=== PATIENT | female | born 1950 | race Caucasian/White ===

== ENCOUNTER 2018-06-29 23:53 | Emergency (ER) | payer MEDICARE ==
[2018-06-30] MEDS ORDERED: NORMAL SALINE 500 ML IV ONE (00:13)
--- NOTE | 2018-06-30 00:13 | ER Document Report ---
ED General - General Chief Complaint: Altered Mental Status Stated Complaint: ALTERED MENTAL STATUS Time Seen by Provider: 06/30/18 00:00 Notes: Patient is a 68-year-old female with primary biliary cirrhosis that presents to the emergency department for chief complaint of confusion. Daughter at bedside is providing history. She reports that since this morning the patient's been altered and more confused and becoming progressively worse over the course of the evening, then she had nausea and 2 episodes of vomiting, at that point they called EMS to bring her to the emergency department. She does have cirrhosis, was recently in the ER, and had elevated ammonia levels, and elevated bilirubin, worsen previous, was seen at [place], and does have a follow-up appointment in 2 weeks. They decreased her lactulose dosing, she also missed 2 doses recently as well. She has not on dialysis currently. She denies having any pain at this time. She is currently being evaluated for possible liver kidney transplant, that is what her his appointment is for coming up. Past Medical History: Primary biliary cirrhosis, diabetes mellitus, chronic kidney disease stage IV Past Surgical History: Hernia repair Social History: Former smoker, denies alcohol or drug use Family History: Reviewed and noncontributory for presenting illness Allergies: Reviewed, see documented allergy list. REVIEW OF SYSTEMS: Other than noted above, the 12 point review of systems was reviewed with the patient and were negative, all pertinent findings are included in the HPI. PHYSICAL EXAMINATION: Vital signs reviewed, nursing noted reviewed. GENERAL: Well-appearing, well-nourished and in no acute distress. HEAD: Atraumatic, normocephalic. EYES: Eyes appear normal, extraocular movements intact, positive scleral icterus, conjunctiva are normal. ENT: nares patent, oropharynx clear without exudates. Moist mucous membranes. NECK: Normal range of motion, supple without lymphadenopathy LUNGS: Breath sounds clear to auscultation bilaterally and equal. No wheezes rales or rhonchi. HEART: Regular rate and rhythm without murmurs ABDOMEN: Soft, nontender, normoactive bowel sounds. No rebound, guarding, or rigidity. No masses appreciated. EXTREMITIES: Nontender, good range of motion, no pitting or edema. NEUROLOGICAL: Alert and oriented x3, alert to self, place, and person, confused about the year, but does know the month. Moves all extremities spontaneously Motor and sensory grossly intact on exam. PSYCH: Normal mood, normal affect. SKIN: Warm, Dry, normal turgor, jaundiced - Related Data Allergies/Adverse Reactions: acetaminophen [From Vicodin] Allergy (Verified 06/30/18 00:43) hydrocodone [From Vicodin] Allergy (Verified 06/30/18 00:43) levofloxacin Allergy (Verified 06/30/18 00:44) propoxyphene Allergy (Verified 06/30/18 00:44) shrimp Allergy (Verified 06/30/18 00:44) Sulfa (Sulfonamide Antibiotics) Allergy (Verified 06/30/18 00:44) tramadol Allergy (Verified 06/30/18 00:43) Past Medical History - Social History Smoking Status: Former Smoker Family History: Reviewed & Not Pertinent Physical Exam - Vital signs Vitals: Temp Pulse Resp BP Pulse Ox 97.6 F 70 12 133/60 H 100 06/29/18 23:53 06/29/18 23:53 06/29/18 23:53 06/29/18 23:53 06/29/18 23:53 Course - Re-evaluation Re-evalutation: Patient seen and examined vital signs reviewed. Laboratory data and imaging were ordered as appropriate for the patient's presenting symptoms and complaint, with consideration of any critical or life threatening conditions that may be associated with their obtained history and exam as noted above. Patient was treated with IV fluid bolus, and lactulose as well as rifaximin Results were reviewed when available and demonstrated elevated ammonia level, hyperbilirubinemia, mild hyponatremia, as well as anemia, and mild thrombocytopenia Results were discussed with the patient's daughter, the ammonia level is elevated from any baseline testing she has had before, her creatinine is improved from recent labs, and her hyperbilirubinemia it usually runs around 7- 8, so it is not significantly changed. The patient was re-evaluated and was stable, still alert and answering questions, still mildly confused, I discussed at length with the patient's daughter is at bedside and understands the patient's condition well the option of admission to the hospital, for her hepatic encephalopathy, versus discharge to home and treatment at home, as there familiar with this condition and treatment, as the patient is alert, not somnolent, not requiring support, and vital signs are stable, I feel that it is a reasonable option for her to be discharged home, would give her a prescription for rifaximin as well as encourage daily lactulose and to follow-up at her appointment in approximately 2 weeks she was agreeable with this plan of care, and also understood strict return precautions. Evaluation was most consistent with hepatic encephalopathy Results were discussed with the patient at this point, after careful conside ration I feel that that patient can be discharged from the emergency department, the patient was educated treatments and reasons to return to the emergency department based on their presumed diagnosis as noted above, they were advised to followup with a primary care physician in 2-3 days. Patient was agreeable to plan of care. *Note is created using voice recognition software and may contain spelling, syntax or grammatical errors. Laboratory 06/30/18 06/30/18 06/30/18 00:10 00:10 00:10 WBC 5.4 RBC 3.40 L Hgb 10.8 L Hct 31.3 L MCV 92 MCH 31.9 MCHC 34.6 RDW 16.6 H Plt Count 106 L Seg Neutrophils % 62.6 Lymphocytes % 27.3 Monocytes % 7.3 Eosinophils % 2.0 Basophils % 0.8 Absolute Neutrophils 3.4 Absolute Lymphocytes 1.5 Absolute Monocytes 0.4 Absolute Eosinophils 0.1 Absolute Basophils 0.0 Sodium 135.5 L Potassium 3.7 Chloride 103 Carbon Dioxide 24 Anion Gap 9 BUN 37 H Creatinine 2.24 H Est GFR ( Amer) 26 L Est GFR (Non-Af Amer) 22 L Glucose 142 H Lactic Acid 1.3 Calcium 9.0 Total Bilirubin 8.3 H Direct Bilirubin 6.5 H Neonat Total Bilirubin Not Reportable Neonat Direct Bilirubin Not Reportable Neonat Indirect Bili Not Reportable AST 128 H ALT 44 Alkaline Phosphatase 436 H Ammonia Troponin I Total Protein 8.7 H Albumin 3.3 L 06/30/18 06/30/18 00:10 00:10 WBC RBC Hgb Hct MCV MCH MCHC RDW Plt Count Seg Neutrophils % Lymphocytes % Monocytes % Eosinophils % Basophils % Absolute Neutrophils Absolute Lymphocytes Absolute Monocytes Absolute Eosinophils Absolute Basophils Sodium Potassium Chloride Carbon Dioxide Anion Gap BUN Creatinine Est GFR ( Amer) Est GFR (Non-Af Amer) Glucose Lactic Acid Calcium Total Bilirubin Direct Bilirubin Neonat Total Bilirubin Neonat Direct Bilirubin Neonat Indirect Bili AST ALT Alkaline Phosphatase Ammonia 106.9 H Troponin I < 0.012 Total Protein Albumin 06/30/18 01:51 - Vital Signs Vital signs: Temp Pulse Resp BP Pulse Ox 97.8 F 70 16 122/58 L 98 06/30/18 00:00 06/29/18 23:53 06/30/18 01:01 06/30/18 01:01 06/30/18 01:01 - Laboratory Result Diagrams: 06/30/18 00:10 06/30/18 00:10 Laboratory results interpreted by me: 06/30/18 06/30/18 06/30/18 00:10 00:10 00:10 RBC 3.40 L Hgb 10.8 L Hct 31.3 L RDW 16.6 H Plt Count 106 L Sodium 135.5 L BUN 37 H Creatinine 2.24 H Est GFR ( Amer) 26 L Est GFR (Non-Af Amer) 22 L Glucose 142 H Total Bilirubin 8.3 H Direct Bilirubin 6.5 H AST 128 H Alkaline Phosphatase 436 H Ammonia 106.9 H Total Protein 8.7 H Albumin 3.3 L - EKG Interpretation by Me Additional EKG results interpreted by me: EKG demonstrates sinus rhythm with a ventricular rate of 69 bpm, normal axis, QTC 502 ms, there is no evidence of acute ischemia on this EKG no prior for comparison. Discharge - Discharge Clinical Impression: Hepatic encephalopathy, Hyponatremia, Renal insufficiency, Hyperbilirubinemia, Thrombocytopenia Anemia Qualifiers: Anemia type: unspecified type Qualified Code(s): D64.9 - Anemia, unspecified Condition: Stable Disposition: HOME, SELF-CARE Instructions: Hepatic Encephalopathy ([facility]) Additional Instructions: Please start the rifaximin twice daily, until she is able to be seen in the clinic, continue the lactulose as well, as this is the mainstay for treating high ammonia levels. If she is having worsening symptoms, is not able to be woken up, or seems more confused over the next 24-48 hours, do not hesitate to return to the emergency department for her to be reevaluated. Please follow-up with [facility], for your appointment on the and 15 July. Prescriptions: Rifaximin [Xifaxan 550 mg Tablet] 550 mg PO BID #30 tablet
[2018-06-30 00:23] LABS: ABSOLUTE EOSINOPHILS # (AUTO) 0.1 10^3/uL (0.0-0.6); ABSOLUTE LYMPHOCYTES (AUTO) 1.5 10^3/uL (0.5-4.7); ABSOLUTE MONOCYTES (AUTO) 0.4 10^3/uL (0.1-1.4); ABSOLUTE NEUT (AUTO) 3.4 10^3/uL (1.7-8.2); BASOPHILS % (AUTO) 0.8 % (0-2); HEMATOCRIT 31.3 % (36.0-47.0); HEMOGLOBIN 10.8 g/dL (12.0-15.5); LYMPHOCYTES % (AUTO) 27.3 % (13-45); MEAN CORPUSCULAR HEMOGLOBIN 31.9 pg (27.0-33.4); MEAN CORPUSCULAR HGB CONC 34.6 g/dL (32.0-36.0); MEAN CORPUSCULAR VOLUME 92 fl (80-97); MONOCYTES % (AUTO) 7.3 % (3-13); PLATELET COUNT 106 10^3/uL (150-450); RED CELL DISTRIBUTION WIDTH 16.6 % (11.5-14.0); SEGMENTED NEUTROPHILS % (AUTO) 62.6 % (42-78); TOTAL CELLS COUNTED % (AUTO) 100 %; WHITE BLOOD COUNT 5.4 10^3/uL (4.0-10.5)
[2018-06-30 00:43] LABS: ALANINE AMINOTRANSFERASE 44 U/L (9-52); ALBUMIN 3.3 g/dL (3.5-5.0); ALKALINE PHOSPHATASE 436 U/L (38-126); ANION GAP 9 (5-19); ASPARTATE AMINO TRANSFERASE 128 U/L (14-36); BILIRUBIN,DIRECT 6.5 mg/dL (0.0-0.4); BILIRUBIN,TOTAL 8.3 mg/dL (0.2-1.3); BLOOD UREA NITROGEN 37 mg/dL (7-20); CARBON DIOXIDE 24 mmol/L (22-30); CHLORIDE 103 mmol/L (98-107); GLUCOSE 142 mg/dL (75-110); POTASSIUM 3.7 mmol/L (3.6-5.0); SODIUM 135.5 mmol/L (137-145); TOTAL PROTEIN 8.7 g/dL (6.3-8.2)
[2018-06-30] MEDS ORDERED: RIFAXIMIN 550 MG TABLET PO ONE (00:59)
[2018-06-30] MEDS ORDERED: LACTULOSE SYRUP 20 GM/30 ML UDCUP PO ONE (01:00)
[2018-06-30] MEDS ORDERED: RIFAXIMIN 550 MG TABLET ONE (01:44)
[2018-06-30 02:10] VITALS: BP 115/55
[2018-06-30] MEDS ORDERED: ONDANSETRON 4 MG TAB.RAPDIS PO ONE (02:19)
--- NOTE | 2018-06-30 15:40 | EKG REPORT ---
SEVERITY:- ABNORMAL ECG - SINUS RHYTHM BORDERLINE PROLONGED QT INTERVAL : Confirmed by: Mae Villaseñor 30-Jun-2018 15:40:24
== END 2018-06-30 02:35 | disposition home or self-care (01) ==
LOC: ER 23:53
DX: K72.90 Hepatic failure, unspecified without coma (principal); E87.1 Hypo-osmolality and hyponatremia; E80.6 Other disorders of bilirubin metabolism; D69.6 Thrombocytopenia, unspecified; R41.82 Altered mental status, unspecified; R11.2 Nausea with vomiting, unspecified; D64.9 Anemia, unspecified; Z88.6 Allergy status to analgesic agent; Z88.2 Allergy status to sulfonamides
CPT/HCPCS: 93005; 99285; 96360; 96361; 36415; 82140; 83605; 85025; 80053; 84484; 93010; A9270 ×3; J7040; S0119